=== PATIENT | female | born 1950 | race Two or more races ===

== ENCOUNTER 2017-09-12 14:32 | Outpatient (CLI) | payer OTHER ==
[~2017-09-12 14:32] MED LIST: PRINIVIL20 MG; VASOTEC20 MG
== END 2017-09-12 17:00 | disposition home or self-care (01) ==
LOC: RAD 14:32
DX: M15.0 Primary generalized (osteo)arthritis (principal)

== ENCOUNTER 2017-09-19 12:15 | Outpatient (CLI) | payer OTHER | END 2017-09-19 13:00 | disposition home or self-care (01) | LOC: NUCLEAR 12:15 | DX: M81.0 Age-related osteoporosis without current pathological fracture (principal) ==

== ENCOUNTER 2018-01-12 22:25 | Emergency (ER) | payer OTHER ==
[~2018-01-12] VITALS: Ht 149.9 cm; Wt 67.1 kg
[2018-01-13] MEDS ORDERED: NABUMETONE750 MG PO (03:29)
[2018-01-13] MEDS ORDERED: ZYNCOF 20-400120 ML PO (03:29)
== END 2018-01-13 03:35 ==
LOC: ER 22:25
DX: M25.551 Pain in right hip (principal); S70.01XS Contusion of right hip, sequela; W22.8XXS Striking against or struck by other objects, sequela

== ENCOUNTER 2018-08-30 14:49 | Emergency (ER) | payer OTHER ==
[~2018-08-30] VITALS: Ht 142.2 cm; Wt 68.0 kg
[~2018-08-30 14:49] MED LIST changes: +NABUMETONE750 MG PO; +ZYNCOF 20-400120 ML PO
== END 2018-08-30 16:53 | disposition home or self-care (01) ==
LOC: ER 14:49
DX: M54.2 Cervicalgia (principal); M25.512 Pain in left shoulder; M62.830 Muscle spasm of back

== ENCOUNTER 2018-09-12 12:10 | Outpatient (CLI) | payer OTHER | END 2018-09-15 12:14 | disposition home or self-care (01) | LOC: MAMO-SONO 12:10 | DX: Z12.31 Encounter for screening mammogram for malignant neoplasm of breast (principal); Z87.898 Personal history of other specified conditions; N64.89 Other specified disorders of breast; J47.9 Bronchiectasis, uncomplicated; J45.998 Other asthma ==

== ENCOUNTER → 2019-04-03 17:16 | Outpatient (CLI) | payer OTHER | END | disposition home or self-care (01) | LOC: RAD 17:16 | DX: H25.011 Cortical age-related cataract, right eye (principal); Z98.41 Cataract extraction status, right eye ==

== ENCOUNTER → 2019-04-15 09:54 | Outpatient (CLI) | payer OTHER | END | disposition home or self-care (01) | LOC: EKG 09:54 | DX: H25.11 Age-related nuclear cataract, right eye (principal); Z01.810 Encounter for preprocedural cardiovascular examination ==

== ENCOUNTER 2020-05-05 12:33 | Outpatient (CLI) | payer OTHER | END 2020-05-05 12:37 | disposition home or self-care (01) | LOC: RAD 12:33 | PROVIDERS: ATTEND Specialist | DX: J45.998 Other asthma (principal) ==

== ENCOUNTER 2020-05-09 08:21 | Outpatient (CLI) | payer OTHER | END 2020-05-09 08:24 | disposition home or self-care (01) | LOC: MAMO-SONO 08:21 | PROVIDERS: ATTEND Specialist | DX: Z12.31 Encounter for screening mammogram for malignant neoplasm of breast (principal) ==

== ENCOUNTER 2020-05-24 08:55 | Outpatient (CLI) | payer OTHER | END 2020-05-24 08:56 | disposition home or self-care (01) | LOC: NUCLEAR 08:55 | PROVIDERS: ATTEND Specialist | DX: E05.80 Other thyrotoxicosis without thyrotoxic crisis or storm (principal) | CPT/HCPCS: 78013; A9512 ==

== ENCOUNTER 2020-05-24 10:09 | Outpatient (CLI) | payer OTHER | END 2020-05-24 15:33 | disposition home or self-care (01) | LOC: MAMO-SONO 10:09 | PROVIDERS: ATTEND Specialist | DX: E05.10 Thyrotoxicosis with toxic single thyroid nodule without thyrotoxic crisis or storm (principal); E05.80 Other thyrotoxicosis without thyrotoxic crisis or storm ==

== ENCOUNTER 2020-07-06 16:38 | Emergency (ER) | payer OTHER ==
[~2020-07-06] VITALS: Ht 134.6 cm; Wt 67.6 kg
[2020-07-06] MEDS ORDERED: LIPITOR20 MG (16:57)
[2020-07-06] MEDS ORDERED: LEVSIN0.125 MG PO (23:56)
[2020-07-06] MEDS ORDERED: PEPCID AC20 MG PO (23:56)
== END 2020-07-06 23:48 | disposition home or self-care (01) ==
LOC: ER 16:38
DX: R10.11 Right upper quadrant pain (principal); R10.31 Right lower quadrant pain; Z03.818 Encounter for observation for suspected exposure to other biological agents ruled out

== ENCOUNTER 2020-08-12 14:22 | Emergency (ER) | payer OTHER ==
[~2020-08-12] VITALS: Ht 134.6 cm; Wt 68.9 kg
[~2020-08-12 14:22] MED LIST changes: +LEVSIN0.125 MG PO; +LIPITOR20 MG; +PEPCID AC20 MG PO
== END 2020-08-12 15:59 | disposition home or self-care (01) ==
LOC: ER 14:22
DX: S80.01XA Contusion of right knee, initial encounter (principal); S90.01XA Contusion of right ankle, initial encounter; W18.39XA Other fall on same level, initial encounter; Y93.89 Activity, other specified; Y92.488 Other paved roadways as the place of occurrence of the external cause; Y99.8 Other external cause status

== ENCOUNTER 2020-09-26 07:16 | Outpatient (CLI) | payer OTHER | END 2020-09-26 07:28 | disposition home or self-care (01) | LOC: NUCLEAR 07:16 | PROVIDERS: ATTEND Specialist | DX: E05.80 Other thyrotoxicosis without thyrotoxic crisis or storm (principal) | CPT/HCPCS: 78012; A9531 ==

== ENCOUNTER 2020-10-24 15:35 | Emergency (ER) | payer OTHER ==
[~2020-10-24] VITALS: Ht 134.6 cm; Wt 68.0 kg
[2020-10-24] MEDS ORDERED: COZAAR50 MG (16:42)
== END 2020-10-25 00:40 | disposition home or self-care (01) ==
LOC: ER 15:35
DX: K62.5 Hemorrhage of anus and rectum (principal)

== ENCOUNTER 2020-12-16 16:07 | Emergency (ER) | payer OTHER ==
[~2020-12-16] VITALS: Ht 134.6 cm; Wt 68.9 kg
[~2020-12-16 16:07] MED LIST changes: +COZAAR50 MG
[2020-12-16] MEDS ORDERED: NEURONTIN800 MG PO (16:17)
[2020-12-16] MEDS ORDERED: LEVOTHYROXINE25 MCG PO (16:17)
== END 2020-12-16 18:55 | disposition home or self-care (01) ==
LOC: ER 16:07
DX: M13.812 Other specified arthritis, left shoulder (principal); M25.512 Pain in left shoulder

== ENCOUNTER 2021-02-06 13:22 | Emergency (ER) | payer OTHER ==
[~2021-02-06] VITALS: Ht 134.6 cm; Wt 68.9 kg
[~2021-02-06 13:22] MED LIST changes: +LEVOTHYROXINE25 MCG PO; +NEURONTIN800 MG PO
[2021-02-06] MEDS ORDERED: INTESTINEX680 M1 PO (18:54)
[2021-02-06] MEDS ORDERED: BENADRYL25 MG PO (18:54)
[2021-02-06] MEDS ORDERED: AMOX-CLAV 875-1 EACH PO (18:54)
[2021-02-06] MEDS ORDERED: NIX59 M1 TOP (18:58)
== END 2021-02-06 19:04 | disposition home or self-care (01) ==
LOC: ER 13:22
DX: L01.09 Other impetigo (principal); R21 Rash and other nonspecific skin eruption; B86 Scabies

== ENCOUNTER 2021-06-05 01:13 | Emergency (ER) | payer OTHER ==
[~2021-06-05] VITALS: Ht 134.6 cm; Wt 68.9 kg
[~2021-06-05 01:13] MED LIST changes: +AMOX-CLAV 875-1 EACH PO; +BENADRYL25 MG PO; +INTESTINEX680 M1 PO; +NIX59 M1 TOP
[2021-06-05] MEDS ORDERED: CIPRO500 MG PO (03:42)
[2021-06-05] MEDS ORDERED: LEVO-T25 MCG PO (03:42)
== END 2021-06-05 03:44 | disposition home or self-care (01) ==
LOC: ER 01:13
DX: N39.0 Urinary tract infection, site not specified (principal); R10.32 Left lower quadrant pain

== ENCOUNTER → 2021-09-18 11:15 | Outpatient (CLI) | payer OTHER ==
[~2021-09-18 11:15] MED LIST changes: +CIPRO500 MG PO; +LEVO-T25 MCG PO
== END | disposition home or self-care (01) ==
LOC: RAD 11:15
PROVIDERS: ATTEND Specialist
DX: J45.998 Other asthma (principal)

== ENCOUNTER 2022-03-16 09:51 | Emergency (ER) | payer OTHER ==
[~2022-03-16] VITALS: Ht 142.2 cm; Wt 65.8 kg
== END 2022-03-16 11:27 | disposition home or self-care (01) ==
LOC: ER 09:51
DX: L02.211 Cutaneous abscess of abdominal wall (principal); L02.818 Cutaneous abscess of other sites; B96.89 Other specified bacterial agents as the cause of diseases classified elsewhere; I10 Essential (primary) hypertension; E03.9 Hypothyroidism, unspecified

== ENCOUNTER 2022-04-25 11:06 | Emergency (ER) | payer OTHER ==
[~2022-04-25] VITALS: Ht 134.6 cm; Wt 65.8 kg
[2022-04-25] MEDS ORDERED: KETO10TA2 PO (14:35)
[2022-04-25] MEDS ORDERED: NORFLEX100MG PO (14:35)
== END 2022-04-25 15:54 | disposition home or self-care (01) ==
LOC: ER 11:06
DX: M54.50 Low back pain, unspecified (principal); M62.838 Other muscle spasm

== ENCOUNTER 2022-05-10 14:09 | Inpatient (IN) | payer OTHER ==
[~2022-05-10] VITALS: Ht 149.9 cm; Wt 68.0 kg
[~2022-05-10 14:09] MED LIST changes: +KETO10TA2 PO; +NORFLEX100MG PO
[2022-05-11] MEDS ORDERED: BENADRYL ALLERG25 MG (10:41)
[2022-05-11] MEDS ORDERED: ATORVASTATIN CA20 MG (10:41)
[2022-05-11] MEDS ORDERED: CLOPIDOGREL BIS75 MG (10:42)
[2022-05-11] MEDS ORDERED: FAMOTIDINE20 MG (10:42)
[2022-05-11] MEDS ORDERED: METHIMAZOLE10 MG (10:42)
[2022-05-11] MEDS ORDERED: PROPRANOLOL HCL10 MG (10:42)
[2022-05-11] MEDS ORDERED: GABAPENTIN100 M2 (10:42)
[2022-05-11] MEDS ORDERED: VITAMIN C500 MG (10:42)
[2022-05-11] MEDS ORDERED: ALEVE220 MG (10:42)
[2022-05-11] MEDS ORDERED: VITAMIN B-12100 MCG (10:42)
[2022-05-11] MEDS ORDERED: LOW DOSE ASPIRI81 M1 (10:42)
== END 2022-05-14 15:10 | disposition home or self-care (01) | DRG 810 ==
LOC: ER 14:09 → ICU-2 18:29 → SURH 18:29
PROVIDERS: ADMIT Specialist; ATTEND Specialist
PROC: 30233N1 Transfusion of Nonautologous Red Blood Cells into Peripheral Vein, Percutaneous Approach (ICD-10-PCS; principal; 2022-05-11)
PROC: 30233R1 Transfusion of Nonautologous Platelets into Peripheral Vein, Percutaneous Approach (ICD-10-PCS; 2022-05-11)
PROC: 079T3ZX Drainage of Bone Marrow, Percutaneous Approach, Diagnostic (ICD-10-PCS; 2022-05-14)
PROC: 07DR3ZX Extraction of Iliac Bone Marrow, Percutaneous Approach, Diagnostic (ICD-10-PCS; 2022-05-14)
DX: D61.818 Other pancytopenia (principal); D51.8 Other vitamin B12 deficiency anemias; E06.5 Other chronic thyroiditis; D69.59 Other secondary thrombocytopenia; Z85.42 Personal history of malignant neoplasm of other parts of uterus; I73.9 Peripheral vascular disease, unspecified; D50.8 Other iron deficiency anemias; Z20.822 Contact with and (suspected) exposure to COVID-19; F17.200 Nicotine dependence, unspecified, uncomplicated

== ENCOUNTER 2022-05-16 15:23 | Inpatient (IN) | payer OTHER ==
[~2022-05-16] VITALS: Ht 162.6 cm; Wt 68.9 kg
[~2022-05-16 15:23] MED LIST changes: +ALEVE220 MG; +ATORVASTATIN CA20 MG; +BENADRYL ALLERG25 MG; +CLOPIDOGREL BIS75 MG; +FAMOTIDINE20 MG; +GABAPENTIN100 M2; +LOW DOSE ASPIRI81 M1; +METHIMAZOLE10 MG; +PROPRANOLOL HCL10 MG; +VITAMIN B-12100 MCG; +VITAMIN C500 MG
== END 2022-05-24 17:26 | disposition designated cancer center or children's hospital (05) | DRG 808 ==
LOC: ER 15:23 → SEC-K 20:32 → SURH 20:32
PROVIDERS: ADMIT Specialist; ATTEND Specialist
PROC: 30233R1 Transfusion of Nonautologous Platelets into Peripheral Vein, Percutaneous Approach (ICD-10-PCS; principal; 2022-05-17)
PROC: 30233N1 Transfusion of Nonautologous Red Blood Cells into Peripheral Vein, Percutaneous Approach (ICD-10-PCS; 2022-05-20)
PROC: BW21YZZ Computerized Tomography (CT Scan) of Abdomen and Pelvis using Other Contrast (ICD-10-PCS; 2022-05-22)
DX: D61.818 Other pancytopenia (principal); A41.9 Sepsis, unspecified organism; C92.00 Acute myeloblastic leukemia, not having achieved remission; R04.0 Epistaxis; E53.8 Deficiency of other specified B group vitamins; E05.90 Thyrotoxicosis, unspecified without thyrotoxic crisis or storm; R41.82 Altered mental status, unspecified; F17.200 Nicotine dependence, unspecified, uncomplicated; I73.89 Other specified peripheral vascular diseases; Z85.42 Personal history of malignant neoplasm of other parts of uterus; Z92.21 Personal history of antineoplastic chemotherapy; Z20.822 Contact with and (suspected) exposure to COVID-19

== ENCOUNTER 2023-03-13 11:57 | Inpatient (IN) | payer OTHER ==
[~2023-03-13] VITALS: Ht 144.8 cm; Wt 68.9 kg
[2023-03-14] MEDS ORDERED: SUCRALFATE1 GM (14:57)
[2023-03-14] MEDS ORDERED: LEVOFLOXACIN500 MG (14:57)
[2023-03-14] MEDS ORDERED: DOCUSATE SODIU100 MG (14:57)
[2023-03-14] MEDS ORDERED: VITAMIN D325 MCG (14:57)
[2023-03-14] MEDS ORDERED: FLUCONAZOLE200 MG (14:57)
[2023-03-14] MEDS ORDERED: ZOVIRAX400 MG (14:57)
[2023-03-14] MEDS ORDERED: AMLODIPINE BESY10 MG (14:57)
[2023-03-14] MEDS ORDERED: METOPROLOL SUCC25 MG (14:57)
== END 2023-03-19 16:58 | disposition left against medical advice (07) | DRG 835 ==
LOC: ER 11:57 → SURH 20:19 → SEC-K 20:19 → SURH 03-14 17:24
PROVIDERS: ADMIT Specialist; ATTEND Specialist
PROC: 30233N1 Transfusion of Nonautologous Red Blood Cells into Peripheral Vein, Percutaneous Approach (ICD-10-PCS; 2023-03-14)
PROC: 30233R1 Transfusion of Nonautologous Platelets into Peripheral Vein, Percutaneous Approach (ICD-10-PCS; 2023-03-14)
PROC: 4A12X4Z Monitoring of Cardiac Electrical Activity, External Approach (ICD-10-PCS; principal; 2023-03-15)
DX: C92.00 Acute myeloblastic leukemia, not having achieved remission (principal); D61.818 Other pancytopenia; D63.0 Anemia in neoplastic disease; D69.6 Thrombocytopenia, unspecified; I10 Essential (primary) hypertension; E78.5 Hyperlipidemia, unspecified; E05.90 Thyrotoxicosis, unspecified without thyrotoxic crisis or storm

== ENCOUNTER 2023-06-21 19:55 | Inpatient (IN) | payer OTHER ==
[~2023-06-21] VITALS: Ht 134.6 cm; Wt 68.9 kg
[~2023-06-21 19:55] MED LIST changes: +AMLODIPINE BESY10 MG; +DOCUSATE SODIU100 MG; +FLUCONAZOLE200 MG; +LEVOFLOXACIN500 MG; +METOPROLOL SUCC25 MG; +SUCRALFATE1 GM; +VITAMIN D325 MCG; +ZOVIRAX400 MG
[2023-06-21 21:39] LABS: HEMATOCRIT 26.4 % (36.0-45.00); MEAN CELL VOLUME 81.7 fL (80.00-100.00); MEAN CORPUSCULAR HGB CONC 34.4 g/dl (32.0-36.0); RED BLOOD COUNT 3.23 M/uL (4.00-6.00); RED CELL DISTRIBUTION WIDTH 14.3 % (11.5-14.5)
[2023-06-21 22:37] LABS: MEAN CORPUSCULAR HEMOGLOBIN 28.1 pg (27.00-32.0)
[2023-06-21 22:38] LABS: HEMOGLOBIN 9.1 g/dL (12.0-15.00)
[2023-06-21 22:39] LABS: PLATELET COUNT 19 K/uL (150-450)
[2023-06-22 01:50] LABS: INR 1.11; PARTIAL THROMBOPLASTIN TIME 34.4 SECONDS (22.0-34.0); PROTHROMBIN TIME 11.6 SECONDS (9.0-11.5)
[2023-06-22 04:36] LABS: INR 1.11; PARTIAL THROMBOPLASTIN TIME 32.4 SECONDS (22.0-34.0); PROTHROMBIN TIME 11.6 SECONDS (9.0-11.5)
[2023-06-22 04:38] LABS: ALBUMIN 2.3 gm/dL (3.4-5.0); BILIRUBIN TOTAL 0.4 mg/dL (0.3-1.2); CREATININE SERUM 0.58 mg/dL (0.55-1.02); GFR 102.48; GLOBULINA 3.8 G/DL (2.4-3.5); POTASSIUM 3.82 mEq/L (3.5-5.1); TOTAL PROTEIN 6.1 gm/dL (6.4-8.2)
[2023-06-22 12:57] LABS: HEMATOCRIT 25.7 % (36.0-45.00); MEAN CELL VOLUME 82.5 fL (80.00-100.00); MEAN CORPUSCULAR HGB CONC 33.7 g/dl (32.0-36.0); RED BLOOD COUNT 3.12 M/uL (4.00-6.00); RED CELL DISTRIBUTION WIDTH 14.6 % (11.5-14.5)
[2023-06-22 12:58] LABS: MEAN CORPUSCULAR HEMOGLOBIN 27.8 pg (27.00-32.0)
[2023-06-22 14:42] LABS: HEMOGLOBIN 8.7 g/dL (12.0-15.00); PLATELET COUNT 26 K/uL (150-450)
[2023-06-22 22:32] LABS: HEMATOCRIT 24.5 % (36.0-45.00); MEAN CELL VOLUME 83.4 fL (80.00-100.00); MEAN CORPUSCULAR HGB CONC 32.8 g/dl (32.0-36.0); RED BLOOD COUNT 2.94 M/uL (4.00-6.00); RED CELL DISTRIBUTION WIDTH 14.1 % (11.5-14.5)
[2023-06-22 23:07] LABS: MEAN CORPUSCULAR HEMOGLOBIN 27.2 pg (27.00-32.0)
[2023-06-22 23:08] LABS: PLATELET COUNT 93 K/uL (150-450)
[2023-06-23 08:11] LABS: HEMATOCRIT 24.7 % (36.0-45.00); MEAN CELL VOLUME 81.2 fL (80.00-100.00); RED BLOOD COUNT 3.04 M/uL (4.00-6.00); RED CELL DISTRIBUTION WIDTH 14.3 % (11.5-14.5)
[2023-06-23 08:25] LABS: MEAN CORPUSCULAR HEMOGLOBIN 28.2 pg (27.00-32.0); PLATELET COUNT 95 K/uL (150-450)
[2023-06-23 10:28] LABS: HEMOGLOBIN 8.6 g/dL (12.0-15.00)
== END 2023-06-23 14:28 | disposition home or self-care (01) | DRG 810 ==
LOC: ER 19:55 → MEDJ 22:17
PROVIDERS: General Practice; ADMIT Internal Medicine Hematology & Oncology; ATTEND Internal Medicine Hematology & Oncology
PROC: 30233N1 Transfusion of Nonautologous Red Blood Cells into Peripheral Vein, Percutaneous Approach (ICD-10-PCS; principal; 2023-06-22)
DX: D61.818 Other pancytopenia (principal); D69.6 Thrombocytopenia, unspecified

== ENCOUNTER 2023-07-01 16:25 | Inpatient (IN) | payer OTHER ==
[~2023-07-01] VITALS: Ht 134.6 cm; Wt 67.1 kg
[2023-07-01 17:19] LABS: MEAN CELL VOLUME 82.9 fL (80.00-100.00); MEAN CORPUSCULAR HGB CONC 33.4 g/dl (32.0-36.0); RED BLOOD COUNT 2.85 M/uL (4.00-6.00); RED CELL DISTRIBUTION WIDTH 14.5 % (11.5-14.5)
[2023-07-01 17:50] LABS: ALBUMIN 2.7 gm/dL (3.4-5.0); BILIRUBIN TOTAL 0.28 mg/dL (0.3-1.2); CREATININE SERUM 0.98 mg/dL (0.55-1.02); GFR 55.94; GLOBULINA 4.4 G/DL (2.4-3.5); POTASSIUM 4.56 mEq/L (3.5-5.1); TOTAL PROTEIN 7.1 gm/dL (6.4-8.2)
[2023-07-01 17:54] LABS: INR 1.08; PARTIAL THROMBOPLASTIN TIME 22.2 SECONDS (22.0-34.0); PROTHROMBIN TIME 11.3 SECONDS (9.0-11.5)
[2023-07-01 18:17] LABS: MEAN CORPUSCULAR HEMOGLOBIN 27.7 pg (27.00-32.0)
[2023-07-01 18:18] LABS: CORRECTED WBC 2.72 K/mm3; HEMATOCRIT 23.6 % (36.0-45.00); HEMOGLOBIN 7.9 g/dL (12.0-15.00)
[2023-07-01 18:21] LABS: PLT IN CITRATE 13 K/uL (150-450)
[2023-07-01 18:26] LABS: PLATELET COUNT 5 K/uL (150-450)
[2023-07-02] MEDS ORDERED: FERROUS SULFAT325 M1 (10:29)
[2023-07-02 22:57] LABS: HEMATOCRIT 29.6 % (36.0-45.00); HEMOGLOBIN 10.1 g/dL (12.0-15.00); MEAN CELL VOLUME 81.1 fL (80.00-100.00); MEAN CORPUSCULAR HEMOGLOBIN 27.6 pg (27.00-32.0); RED BLOOD COUNT 3.65 M/uL (4.00-6.00); RED CELL DISTRIBUTION WIDTH 16.3 % (11.5-14.5)
[2023-07-02 23:01] LABS: PLATELET COUNT 36 K/uL (150-450)
[2023-07-03] MEDS ORDERED: RESTORIL30 M1 PO (08:21)
[2023-07-03 08:41] LABS: HEMATOCRIT 28.5 % (36.0-45.00); HEMOGLOBIN 9.9 g/dL (12.0-15.00); MEAN CORPUSCULAR HEMOGLOBIN 28.3 pg (27.00-32.0); MEAN CORPUSCULAR HGB CONC 34.9 g/dl (32.0-36.0); RED BLOOD COUNT 3.51 M/uL (4.00-6.00); RED CELL DISTRIBUTION WIDTH 16.1 % (11.5-14.5)
[2023-07-03 09:22] LABS: PLATELET COUNT 35 K/uL (150-450)
== END 2023-07-03 10:35 | disposition home or self-care (01) | DRG 810 ==
LOC: ER → SURH 19:19
PROVIDERS: General Practice; ADMIT Internal Medicine Hematology & Oncology; ATTEND Internal Medicine Hematology & Oncology
PROC: 30233R1 Transfusion of Nonautologous Platelets into Peripheral Vein, Percutaneous Approach (ICD-10-PCS; principal; 2023-07-02)
PROC: 30233N1 Transfusion of Nonautologous Red Blood Cells into Peripheral Vein, Percutaneous Approach (ICD-10-PCS; 2023-07-02)
DX: D61.818 Other pancytopenia (principal); D69.6 Thrombocytopenia, unspecified

== ENCOUNTER 2023-07-09 18:24 | Inpatient (IN) | payer OTHER ==
[~2023-07-09] VITALS: Ht 134.6 cm; Wt 671.3 kg
[~2023-07-09 18:24] MED LIST changes: +FERROUS SULFAT325 M1; +RESTORIL30 M1 PO
[2023-07-09] MEDS ORDERED: ZOVIRAX400 MG (18:31)
[2023-07-09] MEDS ORDERED: FLUCONAZOLE200 MG (18:31)
[2023-07-09] MEDS ORDERED: SULFAMETHOXAZOL20 ML (18:32)
[2023-07-09 19:53] LABS: HEMATOCRIT 24.4 % (36.0-45.00); MEAN CORPUSCULAR HGB CONC 34.2 g/dl (32.0-36.0); RED BLOOD COUNT 2.98 M/uL (4.00-6.00); RED CELL DISTRIBUTION WIDTH 16.5 % (11.5-14.5)
[2023-07-09 19:55] LABS: BILIRUBIN TOTAL 0.7 mg/dL (0.3-1.2); CREATININE SERUM 1.21 mg/dL (0.55-1.02); GFR 43.86; GLOBULINA 3.7 G/DL (2.4-3.5); POTASSIUM 4.51 mEq/L (3.5-5.1); TOTAL PROTEIN 5.7 gm/dL (6.4-8.2)
[2023-07-09 20:15] LABS: INR 1.2; PARTIAL THROMBOPLASTIN TIME 31.9 SECONDS (22.0-34.0); PROTHROMBIN TIME 12.4 SECONDS (9.0-11.5)
[2023-07-09 20:18] LABS: URINE APPEARANCE Clear; URINE BILIRRUBIN Small (NEGATIVE); URINE BLOOD Moderate; URINE COLOR Dark Yellow; URINE GLUCOSE Negative (NEGATIVE); URINE LEUKOCYTE Moderate; URINE NITRATE Positive; URINE PROTEIN 30 (NEGATIVE)
[2023-07-09 20:22] LABS: URINE RBC 193.2 uL (0.0-20.8)
[2023-07-09 20:48] LABS: MEAN CORPUSCULAR HEMOGLOBIN 27.8 pg (27.00-32.0)
[2023-07-09 20:50] LABS: PLATELET COUNT 7 K/uL (150-450)
[2023-07-09 20:52] LABS: HEMOGLOBIN 8.3 g/dL (12.0-15.00)
[2023-07-10 20:45] LABS: CALCIUM 7.6 mg/dL (8.5-10.1); CREATININE SERUM 0.82 mg/dL (0.55-1.02); GFR 68.72; POTASSIUM 4.14 mEq/L (3.5-5.1)
[2023-07-11 15:35] LABS: PLATELET ESTIMATE DECREASED (NORMAL)
[2023-07-12 04:40] LABS: HEMATOCRIT 30.2 % (36.0-45.00); MEAN CELL VOLUME 80.9 fL (80.00-100.00); MEAN CORPUSCULAR HEMOGLOBIN 28.1 pg (27.00-32.0); MEAN CORPUSCULAR HGB CONC 34.7 g/dl (32.0-36.0); RED BLOOD COUNT 3.73 M/uL (4.00-6.00); RED CELL DISTRIBUTION WIDTH 16.2 % (11.5-14.5)
[2023-07-12 04:49] LABS: HEMOGLOBIN 10.5 g/dL (12.0-15.00); PLATELET COUNT 39 K/uL (150-450)
[2023-07-13 08:59] LABS: CALCIUM 7.3 mg/dL (8.5-10.1); CREATININE SERUM 0.6 mg/dL (0.55-1.02); GFR 98.55; POTASSIUM 3.66 mEq/L (3.5-5.1)
[2023-07-13 10:59] LABS: HEMOGLOBIN 10.3 g/dL (12.0-15.00); MEAN CELL VOLUME 80.1 fL (80.00-100.00); MEAN CORPUSCULAR HEMOGLOBIN 27.6 pg (27.00-32.0); MEAN CORPUSCULAR HGB CONC 34.5 g/dl (32.0-36.0); RED BLOOD COUNT 3.74 M/uL (4.00-6.00); RED CELL DISTRIBUTION WIDTH 16.7 % (11.5-14.5)
[2023-07-13 11:55] LABS: PLATELET COUNT 25 K/uL (150-450)
[2023-07-14 12:06] LABS: HEMATOCRIT 33.2 % (36.0-45.00); HEMOGLOBIN 11.3 g/dL (12.0-15.00); MEAN CELL VOLUME 82.3 fL (80.00-100.00); MEAN CORPUSCULAR HEMOGLOBIN 28.1 pg (27.00-32.0); MEAN CORPUSCULAR HGB CONC 34.1 g/dl (32.0-36.0); RED BLOOD COUNT 4.03 M/uL (4.00-6.00); RED CELL DISTRIBUTION WIDTH 16.5 % (11.5-14.5)
[2023-07-14 13:26] LABS: PLATELET COUNT 17 K/uL (150-450)
[2023-07-15 07:00] LABS: HEMATOCRIT 29.7 % (36.0-45.00); HEMOGLOBIN 10.2 g/dL (12.0-15.00); MEAN CORPUSCULAR HGB CONC 34.2 g/dl (32.0-36.0); RED BLOOD COUNT 3.62 M/uL (4.00-6.00); RED CELL DISTRIBUTION WIDTH 16.2 % (11.5-14.5)
[2023-07-15 07:30] LABS: ALBUMIN 2.2 gm/dL (3.4-5.0); BILIRUBIN TOTAL 1.07 mg/dL (0.3-1.2); CALCIUM 7.3 mg/dL (8.5-10.1); CREATININE SERUM 0.71 mg/dL (0.55-1.02); GFR 81.15; GLOBULINA 3.8 G/DL (2.4-3.5); MAGNESIUM 1.6 mg/dL (1.8-2.4); POTASSIUM 3.21 mEq/L (3.5-5.1)
[2023-07-15 08:17] LABS: PLATELET COUNT 57 K/uL (150-450)
[2023-07-16 14:05] LABS: HEMATOCRIT 27.5 % (36.0-45.00); HEMOGLOBIN 9.4 g/dL (12.0-15.00); MEAN CELL VOLUME 82.5 fL (80.00-100.00); MEAN CORPUSCULAR HEMOGLOBIN 28.1 pg (27.00-32.0); MEAN CORPUSCULAR HGB CONC 34.1 g/dl (32.0-36.0); RED BLOOD COUNT 3.33 M/uL (4.00-6.00); RED CELL DISTRIBUTION WIDTH 16.6 % (11.5-14.5)
[2023-07-16 14:32] LABS: PLATELET COUNT 22 K/uL (150-450)
[2023-07-16 15:20] LABS: ALBUMIN 1.8 gm/dL (3.4-5.0); BILIRUBIN TOTAL 0.86 mg/dL (0.3-1.2); CREATININE SERUM 0.86 mg/dL (0.55-1.02); GFR 65.05; GLOBULINA 3.9 G/DL (2.4-3.5); MAGNESIUM 1.6 mg/dL (1.8-2.4); PHOSPHOROUS 3.1 mg/dL (2.5-4.9); POTASSIUM 3.66 mEq/L (3.5-5.1); TOTAL PROTEIN 5.7 gm/dL (6.4-8.2)
[2023-07-17 10:23] LABS: HEMATOCRIT 26.8 % (36.0-45.00); MEAN CELL VOLUME 83.1 fL (80.00-100.00); MEAN CORPUSCULAR HEMOGLOBIN 27.9 pg (27.00-32.0); MEAN CORPUSCULAR HGB CONC 33.5 g/dl (32.0-36.0); RED BLOOD COUNT 3.22 M/uL (4.00-6.00); RED CELL DISTRIBUTION WIDTH 16.8 % (11.5-14.5)
[2023-07-17 10:56] LABS: INR 1.59; PARTIAL THROMBOPLASTIN TIME 37.9 SECONDS (22.0-34.0)
[2023-07-17 11:06] LABS: ALBUMIN 1.9 gm/dL (3.4-5.0); BILIRUBIN TOTAL 0.69 mg/dL (0.3-1.2); CALCIUM 7.1 mg/dL (8.5-10.1); CREATININE SERUM 1.15 mg/dL (0.55-1.02); GFR 46.51; GLOBULINA 3.8 G/DL (2.4-3.5); MAGNESIUM 2.1 mg/dL (1.8-2.4); PHOSPHOROUS 4.1 mg/dL (2.5-4.9); POTASSIUM 3.88 mEq/L (3.5-5.1); TOTAL PROTEIN 5.7 gm/dL (6.4-8.2)
[2023-07-17 11:10] LABS: PROTHROMBIN TIME 16.1 SECONDS (9.0-11.5)
[2023-07-17 12:19] LABS: PLATELET COUNT 16 K/uL (150-450)
[2023-07-17 22:07] LABS: ASPERGILLUS FLAVUS Negative (Neg:<1:1); ASPERGILLUS FUMIGATUS Negative (Neg:<1:1); ASPERGILLUS NIGER Negative (Neg:<1:1)
[2023-07-18 05:21] LABS: HEMATOCRIT 28.5 % (36.0-45.00); MEAN CELL VOLUME 83.1 fL (80.00-100.00); MEAN CORPUSCULAR HGB CONC 34.2 g/dl (32.0-36.0); RED BLOOD COUNT 3.43 M/uL (4.00-6.00); RED CELL DISTRIBUTION WIDTH 16.2 % (11.5-14.5)
[2023-07-18 05:30] LABS: ALBUMIN 1.9 gm/dL (3.4-5.0); BILIRUBIN TOTAL 0.83 mg/dL (0.3-1.2); CALCIUM 7.2 mg/dL (8.5-10.1); CREATININE SERUM 1.28 mg/dL (0.55-1.02); GFR 41.11; GLOBULINA 3.8 G/DL (2.4-3.5); MAGNESIUM 2.9 mg/dL (1.8-2.4); PHOSPHOROUS 5.2 mg/dL (2.5-4.9); POTASSIUM 3.44 mEq/L (3.5-5.1); TOTAL PROTEIN 5.7 gm/dL (6.4-8.2)
[2023-07-18 05:49] LABS: HEMOGLOBIN 9.7 g/dL (12.0-15.00); MEAN CORPUSCULAR HEMOGLOBIN 28.2 pg (27.00-32.0); PLATELET COUNT 33 K/uL (150-450)
[2023-07-19 06:47] LABS: HEMATOCRIT 26.4 % (36.0-45.00); MEAN CORPUSCULAR HGB CONC 33.2 g/dl (32.0-36.0); RED CELL DISTRIBUTION WIDTH 17.9 % (11.5-14.5)
[2023-07-19 07:18] LABS: ALBUMIN 1.8 gm/dL (3.4-5.0); BILIRUBIN TOTAL 0.75 mg/dL (0.3-1.2); CALCIUM 7.5 mg/dL (8.5-10.1); CREATININE SERUM 1.63 mg/dL (0.55-1.02); GFR 31.1; GLOBULINA 3.9 G/DL (2.4-3.5); MAGNESIUM 3.6 mg/dL (1.8-2.4); PHOSPHOROUS 7.7 mg/dL (2.5-4.9); POTASSIUM 4.21 mEq/L (3.5-5.1); TOTAL PROTEIN 5.7 gm/dL (6.4-8.2)
[2023-07-19 07:44] LABS: MEAN CORPUSCULAR HEMOGLOBIN 28.3 pg (27.00-32.0)
[2023-07-19 07:47] LABS: HEMOGLOBIN 8.8 g/dL (12.0-15.00); PLATELET COUNT 18 K/uL (150-450)
[2023-07-19 10:21] LABS: ABG PH 7.203 (7.35-7.45); ABG PO2 224.7 mmHg (80-100); ABG pCO2 29.7 mmHg (35-45); BASE EXCESS -12.1 mmol/l; BICARBONATE 11.4 mmol/l (23-25); SaO2 99.5 %; Tco2 12.3 mmol/l
[2023-07-19 10:22] LABS: allen test SATISFACTORY; o2 100 %; puncture site RADIAL LEFT
[2023-07-19 20:25] LABS: ABG PO2 97.2 mmHg (80-100); ABG pCO2 46.6 mmHg (35-45); BASE EXCESS -13.6 mmol/l; BICARBONATE 15.3 mmol/l (23-25); SaO2 93.7 %; Tco2 16.8 mmol/l
[2023-07-19 20:26] LABS: allen test SATISFACTORY; o2 40 %; puncture site RADIAL RIGHT
[2023-07-19 20:27] LABS: ABG PH 7.198 (7.35-7.45); ABG pCO2 38.7 mmHg (35-45); BASE EXCESS -12.6 mmol/l; BICARBONATE 14.7 mmol/l (23-25); Tco2 15.9 mmol/l; allen test SATISFACTORY; o2 40 %; puncture site RADIAL LEFT
[2023-07-20 04:53] LABS: MEAN CELL VOLUME 82.8 fL (80.00-100.00); MEAN CORPUSCULAR HGB CONC 34.9 g/dl (32.0-36.0); RED BLOOD COUNT 2.33 M/uL (4.00-6.00); RED CELL DISTRIBUTION WIDTH 16.9 % (11.5-14.5)
[2023-07-20 04:54] LABS: HEMATOCRIT 19.3 % (36.0-45.00); MEAN CORPUSCULAR HEMOGLOBIN 28.7 pg (27.00-32.0); PLATELET COUNT 45 K/uL (150-450)
[2023-07-20 04:55] LABS: HEMOGLOBIN 6.7 g/dL (12.0-15.00)
[2023-07-20 05:24] LABS: ALBUMIN 1.5 gm/dL (3.4-5.0); BILIRUBIN TOTAL 1.15 mg/dL (0.3-1.2); CALCIUM 6.6 mg/dL (8.5-10.1); CREATININE SERUM 1.96 mg/dL (0.55-1.02); GFR 25.14; GLOBULINA 3.5 G/DL (2.4-3.5); POTASSIUM 3.38 mEq/L (3.5-5.1)
[2023-07-20 08:32] LABS: ABG PH 7.416 (7.35-7.45); ABG PO2 116.6 mmHg (80-100); ABG pCO2 30.3 mmHg (35-45); BASE EXCESS -4.2 mmol/l; BICARBONATE 19.1 mmol/l (23-25); SaO2 98.5 %; allen test SATISFACTORY; puncture site RADIAL LEFT
[2023-07-20 08:33] LABS: o2 40 %
[2023-07-21 01:15] LABS: HEMATOCRIT 30.1 % (36.0-45.00); HEMOGLOBIN 10.5 g/dL (12.0-15.00); MEAN CELL VOLUME 83.9 fL (80.00-100.00); MEAN CORPUSCULAR HEMOGLOBIN 29.3 pg (27.00-32.0); MEAN CORPUSCULAR HGB CONC 34.9 g/dl (32.0-36.0); RED BLOOD COUNT 3.59 M/uL (4.00-6.00); RED CELL DISTRIBUTION WIDTH 15.7 % (11.5-14.5)
[2023-07-21 01:20] LABS: PLATELET COUNT 43 K/uL (150-450)
[2023-07-21 01:34] LABS: ALBUMIN 2.2 gm/dL (3.4-5.0); BILIRUBIN TOTAL 1.47 mg/dL (0.3-1.2); CALCIUM 7.7 mg/dL (8.5-10.1); CREATININE SERUM 1.96 mg/dL (0.55-1.02); GFR 25.14; MAGNESIUM 2.9 mg/dL (1.8-2.4); PHOSPHOROUS 6.5 mg/dL (2.5-4.9); POTASSIUM 4.12 mEq/L (3.5-5.1); TOTAL PROTEIN 6.2 gm/dL (6.4-8.2)
[2023-07-21 08:26] LABS: ABG PH 7.335 (7.35-7.45); ABG PO2 93.9 mmHg (80-100); ABG pCO2 37.4 mmHg (35-45); BASE EXCESS -5.7 mmol/l; BICARBONATE 19.5 mmol/l (23-25); SaO2 96.5 %; Tco2 20.6 mmol/l; allen test SATISFACTORY; o2 40 %; puncture site RADIAL RIGHT
[2023-07-22 06:57] LABS: ALBUMIN 1.9 gm/dL (3.4-5.0); BILIRUBIN TOTAL 0.91 mg/dL (0.3-1.2); CALCIUM 7.5 mg/dL (8.5-10.1); CREATININE SERUM 3.1 mg/dL (0.55-1.02); GFR 14.81; GLOBULINA 3.3 G/DL (2.4-3.5); MAGNESIUM 2.8 mg/dL (1.8-2.4); PHOSPHOROUS 6.1 mg/dL (2.5-4.9); POTASSIUM 4.35 mEq/L (3.5-5.1); TOTAL PROTEIN 5.2 gm/dL (6.4-8.2)
[2023-07-22 06:59] LABS: MEAN CELL VOLUME 83.6 fL (80.00-100.00); MEAN CORPUSCULAR HGB CONC 35.4 g/dl (32.0-36.0); RED BLOOD COUNT 2.32 M/uL (4.00-6.00); RED CELL DISTRIBUTION WIDTH 15.8 % (11.5-14.5)
[2023-07-22 09:11] LABS: MEAN CORPUSCULAR HEMOGLOBIN 29.7 pg (27.00-32.0)
[2023-07-22 09:15] LABS: HEMATOCRIT 19.4 % (36.0-45.00); HEMOGLOBIN 6.9 g/dL (12.0-15.00)
[2023-07-22 09:17] LABS: PLATELET COUNT 13 K/uL (150-450)
[2023-07-22 10:57] LABS: ABG PO2 100.9 mmHg (80-100); ABG pCO2 39.1 mmHg (35-45); BASE EXCESS 4.7 mmol/l; BICARBONATE 28.4 mmol/l (23-25); SaO2 98.3 %; Tco2 29.6 mmol/l
[2023-07-22 11:00] LABS: allen test SATISFACTORY; o2 40 %; puncture site RADIAL RIGHT
[2023-07-23 07:24] LABS: HEMATOCRIT 24.1 % (36.0-45.00); MEAN CELL VOLUME 85.3 fL (80.00-100.00); MEAN CORPUSCULAR HGB CONC 38.3 g/dl (32.0-36.0); RED BLOOD COUNT 2.83 M/uL (4.00-6.00); RED CELL DISTRIBUTION WIDTH 16.1 % (11.5-14.5)
[2023-07-23 07:39] LABS: ALBUMIN 1.9 gm/dL (3.4-5.0); BILIRUBIN TOTAL 0.99 mg/dL (0.3-1.2); CALCIUM 7.6 mg/dL (8.5-10.1); CREATININE SERUM 3.73 mg/dL (0.55-1.02); GFR 11.96; GLOBULINA 3.9 G/DL (2.4-3.5); POTASSIUM 5.24 mEq/L (3.5-5.1); TOTAL PROTEIN 5.8 gm/dL (6.4-8.2)
[2023-07-23 09:21] LABS: MEAN CORPUSCULAR HEMOGLOBIN 32.5 pg (27.00-32.0)
[2023-07-23 09:31] LABS: HEMOGLOBIN 9.2 g/dL (12.0-15.00); PLATELET COUNT 84 K/uL (150-450)
[2023-07-23 10:28] LABS: ABG PH 7.204 (7.35-7.45); ABG PO2 88.5 mmHg (80-100); BASE EXCESS -9.2 mmol/l; BICARBONATE 18.9 mmol/l (23-25); SaO2 93.6 %; Tco2 20.4 mmol/l
[2023-07-23 10:29] LABS: allen test SATISFACTORY; o2 50 %; puncture site RADIAL LEFT
[2023-07-24 07:00] LABS: ALBUMIN 1.4 gm/dL (3.4-5.0); BILIRUBIN TOTAL 1.19 mg/dL (0.3-1.2); CALCIUM 7.1 mg/dL (8.5-10.1); GFR 11.17; GLOBULINA 3.8 G/DL (2.4-3.5); MAGNESIUM 2.7 mg/dL (1.8-2.4); PHOSPHOROUS 6.7 mg/dL (2.5-4.9); POTASSIUM 4.92 mEq/L (3.5-5.1); TOTAL PROTEIN 5.2 gm/dL (6.4-8.2)
[2023-07-24 07:26] LABS: HEMATOCRIT 24.3 % (36.0-45.00); MEAN CELL VOLUME 84.9 fL (80.00-100.00); MEAN CORPUSCULAR HGB CONC 34.6 g/dl (32.0-36.0); RED BLOOD COUNT 2.86 M/uL (4.00-6.00); RED CELL DISTRIBUTION WIDTH 16.8 % (11.5-14.5)
[2023-07-24 07:44] LABS: CREATININE SERUM 3.96 mg/dL (0.55-1.02)
[2023-07-24 08:43] LABS: MEAN CORPUSCULAR HEMOGLOBIN 29.3 pg (27.00-32.0)
[2023-07-24 08:45] LABS: HEMOGLOBIN 8.4 g/dL (12.0-15.00)
[2023-07-24 08:47] LABS: PLATELET COUNT 13 K/uL (150-450)
[2023-07-24 11:36] LABS: ABG PH 7.215 (7.35-7.45); ABG PO2 85.9 mmHg (80-100); ABG pCO2 43.1 mmHg (35-45); BASE EXCESS -10.4 mmol/l; SaO2 93.2 %
[2023-07-24 11:37] LABS: Tco2 18.3 mmol/l; allen test SATISFACTORY; puncture site RADIAL RIGHT
[2023-07-24 11:38] LABS: o2 50 %
[2023-07-25 07:26] LABS: MEAN CELL VOLUME 86.3 fL (80.00-100.00); MEAN CORPUSCULAR HGB CONC 33.9 g/dl (32.0-36.0); RED BLOOD COUNT 2.04 M/uL (4.00-6.00); RED CELL DISTRIBUTION WIDTH 16.5 % (11.5-14.5)
[2023-07-25 07:33] LABS: ALBUMIN 1.2 gm/dL (3.4-5.0); BILIRUBIN TOTAL 1.45 mg/dL (0.3-1.2); GLOBULINA 3.4 G/DL (2.4-3.5); POTASSIUM 4.92 mEq/L (3.5-5.1); TOTAL PROTEIN 4.6 gm/dL (6.4-8.2)
[2023-07-25 07:59] LABS: GFR 9.54
[2023-07-25 08:02] LABS: CREATININE SERUM 4.54 mg/dL (0.55-1.02)
[2023-07-25 09:21] LABS: HEMATOCRIT 17.6 % (36.0-45.00); MEAN CORPUSCULAR HEMOGLOBIN 28.9 pg (27.00-32.0)
[2023-07-25 09:22] LABS: PLATELET COUNT 15 K/uL (150-450)
[2023-07-25 09:23] LABS: HEMOGLOBIN 5.9 g/dL (12.0-15.00)
[2023-07-25 09:40] LABS: ABG PH 7.263 (7.35-7.45); BASE EXCESS -8.1 mmol/l; BICARBONATE 18.5 mmol/l (23-25); SaO2 92.3 %
[2023-07-25 09:41] LABS: Tco2 19.8 mmol/l; allen test SATISFACTORY; o2 50 %; puncture site RADIAL RIGHT
[2023-07-26 08:47] LABS: BASE EXCESS -9.1 mmol/l; BICARBONATE 17.1 mmol/l (23-25); SaO2 89.4 %; Tco2 18.2 mmol/l; allen test SATISFACTORY; o2 50 %; puncture site RADIAL RIGHT
[2023-07-26 15:48] LABS: HEMATOCRIT 27.6 % (36.0-45.00); MEAN CELL VOLUME 83.5 fL (80.00-100.00); MEAN CORPUSCULAR HGB CONC 33.8 g/dl (32.0-36.0); RED BLOOD COUNT 3.31 M/uL (4.00-6.00); RED CELL DISTRIBUTION WIDTH 16.6 % (11.5-14.5)
[2023-07-26 15:55] LABS: ALBUMIN 1.1 gm/dL (3.4-5.0); BILIRUBIN TOTAL 2.59 mg/dL (0.3-1.2); CALCIUM 6.8 mg/dL (8.5-10.1); GLOBULINA 3.5 G/DL (2.4-3.5); PHOSPHOROUS 6.9 mg/dL (2.5-4.9); POTASSIUM 4.24 mEq/L (3.5-5.1); TOTAL PROTEIN 4.6 gm/dL (6.4-8.2)
[2023-07-26 16:23] LABS: HEMOGLOBIN 9.3 g/dL (12.0-15.00)
[2023-07-26 16:26] LABS: PLATELET COUNT 21 K/uL (150-450)
[2023-07-26 16:40] LABS: GFR 8.71
[2023-07-26 16:41] LABS: CREATININE SERUM 4.91 mg/dL (0.55-1.02)
[2023-07-27 09:10] LABS: ABG PH 7.277 (7.35-7.45); ABG PO2 86.5 mmHg (80-100); ABG pCO2 35.7 mmHg (35-45)
[2023-07-27 09:11] LABS: BASE EXCESS -9.6 mmol/l; BICARBONATE 16.3 mmol/l (23-25); SaO2 94.5 %; Tco2 17.4 mmol/l; allen test SATISFACTORY; o2 50 %; puncture site RADIAL RIGHT
[2023-07-28 08:41] LABS: ABG PH 6.907 (7.35-7.45); ABG PO2 95.8 mmHg (80-100); ABG pCO2 37.8 mmHg (35-45); BASE EXCESS -25.2 mmol/l; BICARBONATE 7.3 mmol/l (23-25); SaO2 86.1 %; Tco2 8.5 mmol/l; allen test SATISFACTORY; o2 100 %; puncture site RADIAL RIGHT
== END 2023-07-28 15:39 | disposition expired | DRG 871 ==
LOC: ER 18:24 → SURH 22:12 → ICU 07-16 13:55
PROVIDERS: General Practice; Internal Medicine; Internal Medicine Infectious Disease; Internal Medicine Nephrology; ADMIT Internal Medicine Hematology & Oncology; ATTEND Internal Medicine Hematology & Oncology
PROC: 8E0ZXY6 Isolation (ICD-10-PCS; principal; 2023-07-09)
PROC: BW40ZZZ Ultrasonography of Abdomen (ICD-10-PCS; 2023-07-10)
PROC: 30243N1 Transfusion of Nonautologous Red Blood Cells into Central Vein, Percutaneous Approach (ICD-10-PCS; 2023-07-10)
PROC: BW21YZZ Computerized Tomography (CT Scan) of Abdomen and Pelvis using Other Contrast (ICD-10-PCS; 2023-07-14)
PROC: B24BYZZ Ultrasonography of Heart with Aorta using Other Contrast (ICD-10-PCS; 2023-07-16)
PROC: 0T9B70Z Drainage of Bladder with Drainage Device, Via Natural or Artificial Opening (ICD-10-PCS; 2023-07-18)
PROC: 5A1945Z Respiratory Ventilation, 24-96 Consecutive Hours (ICD-10-PCS; 2023-07-19)
PROC: 0BH17EZ Insertion of Endotracheal Airway into Trachea, Via Natural or Artificial Opening (ICD-10-PCS; 2023-07-19)
PROC: BW28ZZZ Computerized Tomography (CT Scan) of Head (ICD-10-PCS; 2023-07-19)
PROC: BW40ZZZ Ultrasonography of Abdomen (ICD-10-PCS; 2023-07-23)
PROC: 02HV33Z Insertion of Infusion Device into Superior Vena Cava, Percutaneous Approach (ICD-10-PCS; 2023-07-23)
PROC: BW21YZZ Computerized Tomography (CT Scan) of Abdomen and Pelvis using Other Contrast (ICD-10-PCS; 2023-07-24)
DX: A41.9 Sepsis, unspecified organism (principal); I21.4 Non-ST elevation (NSTEMI) myocardial infarction; J96.01 Acute respiratory failure with hypoxia; N39.0 Urinary tract infection, site not specified; D84.9 Immunodeficiency, unspecified; C92.01 Acute myeloblastic leukemia, in remission; N17.9 Acute kidney failure, unspecified; D61.818 Other pancytopenia; I24.9 Acute ischemic heart disease, unspecified; I50.1 Left ventricular failure, unspecified; E87.20 Acidosis, unspecified; D69.6 Thrombocytopenia, unspecified; K12.1 Other forms of stomatitis; S60.222A Contusion of left hand, initial encounter; E88.09 Other disorders of plasma-protein metabolism, not elsewhere classified; N28.1 Cyst of kidney, acquired; R16.2 Hepatomegaly with splenomegaly, not elsewhere classified; K52.9 Noninfective gastroenteritis and colitis, unspecified; K57.30 Diverticulosis of large intestine without perforation or abscess without bleeding; I10 Essential (primary) hypertension; Z66 Do not resuscitate; B37.9 Candidiasis, unspecified; R33.9 Retention of urine, unspecified; R60.1 Generalized edema